=== PATIENT | female | born 1980 | race Two or more races ===

== ENCOUNTER 2016-09-12 18:42 | Emergency (ER) | payer BC, OTHER ==
[2016-09-12 18:46] VITALS: BP 161/71; PULSE 100; TEMP 98.1; BMI 34.3
[2016-09-12] MEDS ORDERED: ONDANSETRON 4 MG/2 ML VIAL IVPB ONE (20:42)
[2016-09-12] MEDS ORDERED: SODIUM CHLORIDE 1,000 ML IV STA (20:42)
--- NOTE | 2016-09-12 20:42 | PDOC ---
History of Present Illness - General History Source: Patient Exam Limitations: No Limitations - History of Present Illness Initial Comments: 09/12/16 21:09 Patient is a 36 year old female with no significant past medical history who presents to the ED with right flank pain. Patient notes that she developed a right sided flank pain for few days that now radiated to the R groin with radiation to the right rib area. Patient notes that earlier this morning she felt a passing pain this morning. She also reports nausea and increased urinary output. PSH: none ALL: none SH: none <Cherise Acevedo - Last Filed: 09/13/16 00:24> <Rashmi Charlton - Last Filed: 09/13/16 00:37> - General Chief Complaint: Pain Stated Complaint: RT SIDE ABD PAIN/BACK PAIN Time Seen by Provider: 09/12/16 20:19 Past History <Cherise Acevedo - Last Filed: 09/13/16 00:24> - Psycho/Social/Smoking Cessation Hx Suicidal Ideation: No Smoking History: Never smoked Information on smoking cessation initiated: No Hx Alcohol Use: No Drug/Substance Use Hx: No Substance Use Type: None <Rashmi Charlton - Last Filed: 09/13/16 00:37> - Past Medical History Allergies/Adverse Reactions: Allergies Allergy/AdvReac Type Severity Reaction Status Date / Time No Known Allergies Allergy Verified 09/12/16 18:46 Home Medications: Ambulatory Orders Sulfamethoxazole/Trimethoprim [Bactrim Ds -] 1 tab PO BID #14 tablet 09/13/16 Review of Systems - Review of Systems Able to Perform ROS?: Yes Comments:: 09/12/16 21:09 CONSTITUTIONAL: Absent: fever, chills, diaphoresis, generalized weakness, malaise, loss of appetite HEENT: Absent: rhinorrhea, nasal congestion, throat pain, throat swelling, difficulty swallowing, mouth swelling, ear pain, eye pain, visual Changes CARDIOVASCULAR: Absent: chest pain, syncope, palpitations, irregular heart rate, lightheadedness , peripheral edema RESPIRATORY: Absent: cough, shortness of breath, dyspnea with exertion, orthopnea, wheezing, stridor, hemoptysis GASTROINTESTINAL: Absent: abdominal pain, abdominal distension, nausea, vomiting, diarrhea, constipation, melena, hematochezia GENITOURINARY: Present: R flank pain, right groin pain Absent: dysuria, frequency, urgency, hesitancy, hematuria, genital pain MUSCULOSKELETAL: Absent: myalgia, arthralgia, joint swelling SKIN: Absent: rash, itching, pallor HEMATOLOGIC/IMMUNOLOGIC: Absent: easy bleeding, easy bruising, lymphadenopathy, frequent infections ENDOCRINE: Absent: unexplained weight gain, unexplained weight loss, heat intolerance, cold intolerance NEUROLOGIC: Absent: headache, focal weakness or paresthesias, dizziness, unsteady gait, seizure, mental status changes, bladder or bowel incontinence PSYCHIATRIC: Absent: anxiety, depression, suicidal or homicidal ideation, hallucinations. <Cherise Acevedo - Last Filed: 09/13/16 00:24> *Physical Exam - Vital Signs Last Vital Signs Temp Pulse Resp BP Pulse Ox 98.1 F 100 H 18 161/71 99 09/12/16 18:43 09/12/16 18:43 09/12/16 18:43 09/12/16 18:43 09/12/16 18:43 - Physical Exam Comments: 09/12/16 21:10 GENERAL: Well developed, well nourished. Awake and alert. No acute distress. HEENT: Normocephalic, atraumatic. PERRLA, EOMI. No conjunctival pallor. Sclera are non- icteric. Moist mucous membranes. Oropharynx is clear. NECK: Supple. Full ROM. No JVD. Carotid pulses 2+ and symmetric, without bruits. No thyromegaly. No lymphadenopathy. CARDIOVASCULAR: Regular rate and rhythm. No murmurs, rubs, or gallops. Distal pulses are 2+ and symmetric. PULMONARY: No evidence of respiratory distress. Lungs clear to auscultation bilaterally. No wheezing, rales or rhonchi. ABDOMINAL: +right groin tenderness to palpation. Soft. Non-distended. No rebound or guarding. No organomegaly. Normoactive bowel sounds. MUSCULOSKELETAL +Right CVA tenderness. Normal range of motion at all joints. No bony deformities or tenderness. EXTREMITIES: No cyanosis. No clubbing. No edema. No calf tenderness. SKIN: Warm and dry. Normal capillary refill. No rashes. No jaundice. NEUROLOGICAL: Alert, awake, appropriate. Cranial nerves 2-12 intact. No deficits to light touch and temperature in face, upper extremities and lower extremities. No motor deficits in the in face, upper extremities and lower extremities. Normoreflexic in the upper and lower extremities. Normal speech. PSYCHIATRIC: Cooperative. Good eye contact. Appropriate mood and affect. <Cherise Acevedo - Last Filed: 09/13/16 00:24> - Vital Signs Last Vital Signs Temp Pulse Resp BP Pulse Ox 98.1 F 100 H 18 161/71 99 09/12/16 18:43 09/12/16 18:43 09/12/16 18:43 09/12/16 18:43 09/12/16 18:43 <Rashmi Charlton - Last Filed: 09/13/16 00:37> ED Treatment Course - LABORATORY CBC & Chemistry Diagram: 09/12/16 20:45 09/12/16 22:30 - ADDITIONAL ORDERS Additional order review: 09/12/16 20:45 RBC 4.80 MCV 86.6 MCHC 33.6 RDW 13.5 MPV 9.0 Neutrophils % 56.8 Lymphocytes % 35.9 Monocytes % 5.7 Eosinophils % 0.9 Basophils % 0.7 - RADIOLOGY Radiology Studies Ordered: 09/13/16 00:24 THIS IS A PRELIMINARY REPORT FROM [facility] EXAM: CT ABDOMEN AND PELVIS WITHOUT CONTRAST 3.2 cm exophytic fibroid near right uterine fundus versus right adnexal mass. Possible trace physiologic free fluid left adnexa. Further evaluation with ultrasound may be useful. No nephrolithiasis, ureterolithiasis or obstructive uropathy. No bladder calculi. Unremarkable pancreas and gallbladder. No bowel obstruction, colitis, diverticulitis or free air. Normal appendix. THIS DOCUMENT HAS BEEN ELECTRONICALLY SIGNED [place] Esposito M.D. - Medications Given in the ED: ED Medications Discontinued Medications Generic Name Dose Route Start Last Admin Trade Name Freq PRN Reason Stop Dose Admin Ondansetron HCl 4 mg 09/12/16 20:42 09/12/16 20:52 Zofran Injection IVPB 09/12/16 20:43 4 mg ONCE ONE Administration <Cherise Acevedo - Last Filed: 09/13/16 00:24> - LABORATORY CBC & Chemistry Diagram: 09/12/16 20:45 09/12/16 22:30 <Rashmi Charlton - Last Filed: 09/13/16 00:37> *DC/Admit/Observation/Transfer - Attestations Scribe Attestion: 09/12/16 21:17 Documentation prepared by FRITZ Hopkins, acting as medical doctor for Rashmi Charlton MD. <Cherise Acevedo - Last Filed: 09/13/16 00:24> <Rashmi Charlton - Last Filed: 09/13/16 00:37> Diagnosis at time of Disposition: Pelvic pain, Flank pain Fibroid Qualifiers: Uterine leiomyoma location: unspecified location Qualified Code(s): D25.9 - Leiomyoma of uterus, unspecified Urinary tract infection Qualifiers: Urinary tract infection type: site unspecified Hematuria presence: without hematuria Qualified Code(s): N39.0 - Urinary tract infection, site not specified - Discharge Dispostion Disposition: HOME Condition at time of disposition: Stable - Prescriptions Prescriptions: Sulfamethoxazole/Trimethoprim [Bactrim Ds -] 1 tab PO BID #14 tablet - Referrals Referrals: Blade Robin MD [Primary Care Provider] - - Patient Instructions Printed Discharge Instructions: DI for Pelvic Pain, DI for Flank Pain, DI for Urinary Tract Infection (UTI) Additional Instructions: please follow up with the core checker for ultrasound and further evaluation
[2016-09-12] MEDS ORDERED: ONDANSETRON 4 MG/2 ML VIAL ONE (20:44)
[2016-09-12 20:59] LABS: BASOPHIL 0.7 % (0-2.0); EOSINOPHIL 0.9 % (0-4.5); MCH 29.1 pg (25.7-33.7); MCHC 33.6 g/dl (32.0-36.0); MEAN CELL VOLUME 86.6 fl (80-96); NEUTROPHILS 56.8 % (42.8-82.8); PLATELET COUNT 253 K/MM3 (134-434); RDW 13.5 % (11.6-15.6); WHITE BLOOD COUNT 7.8 K/mm3 (4.0-10.0)
[2016-09-12 21:10] LABS: URINE APPEARANCE CLEAR; URINE BILIRUBIN NEGATIVE (NEGATIVE); URINE BLOOD NEGATIVE (NEGATIVE); URINE COLOR LTYELLOW; URINE GLUCOSE (UA) NEGATIVE (NEGATIVE); URINE KETONE NEGATIVE (NEGATIVE); URINE NITRITE NEGATIVE (NEGATIVE); URINE PROTEIN NEGATIVE (NEGATIVE); URINE UROBILINOGEN NEGATIVE E.U./dl (0.2-1.0)
[2016-09-12 21:17] LABS: URINE LEUK ESTERASE 3+ (NEGATIVE)
[2016-09-12 21:19] LABS: URINE MUCUS RARE; URINE RBC 4 /hpf (0-3); URINE WBC 15 /hpf (3-5)
[2016-09-12 23:10] LABS: ALBUMIN 3.5 g/dl (3.4-5.0); ANION GAP 10 (8-16); BILIRUBIN,TOTAL 0.4 mg/dL (0.2-1.0); CALCIUM 8.6 mg/dL (8.5-10.1); CO2 24 mmol/L (21-32); CREATININE 0.6 mg/dL (0.55-1.02); GLUCOSE,RANDOM 80 mg/dL (74-106); SGOT/AST 17 U/L (15-37); SGPT/ALT 20 U/L (12-78)
[2016-09-12 23:11] LABS: ALK PHOS 42 U/L (45-117); TOT PROT 6.8 g/dl (6.4-8.2)
[2016-09-13] MEDS ORDERED: KETOROLAC TROMETHAMINE 30 MG/1 ML VIAL IVPUSH ONE (00:23)
[2016-09-13] MEDS ORDERED: SULFAMETHOXAZOLE/TRIMETHOPRIM 800MG/160MG D.S. TABLET PO ONE (00:35)
[2016-09-13] MEDS ORDERED: KETOROLAC TROMETHAMINE 30 MG/1 ML VIAL ONE (00:35)
== END 2016-09-13 01:05 | disposition home or self-care (01) ==
LOC: JER 18:42
PROC: 3E0337Z Introduction of Electrolytic and Water Balance Substance into Peripheral Vein, Percutaneous Approach (ICD-10-PCS; principal; 2016-09-12)
PROC: 3E0333Z Introduction of Anti-inflammatory into Peripheral Vein, Percutaneous Approach (ICD-10-PCS; 2016-09-12)
PROC: 3E033GC Introduction of Other Therapeutic Substance into Peripheral Vein, Percutaneous Approach (ICD-10-PCS; 2016-09-12)
DX: N39.0 Urinary tract infection, site not specified (principal); D25.9 Leiomyoma of uterus, unspecified
CPT/HCPCS: 36415; 74176; 80053; 81003; 81015; 83690; 84703; 85025; 99283-25

== ENCOUNTER 2018-10-26 16:10 | Emergency (ER) | payer OTHER, BC ==
[2018-10-26 16:22] VITALS: BP 119/58; PULSE 92; TEMP 98.1; BMI 35.2
[2018-10-26] MEDS ORDERED: DIPHTH,PERTUSS(ACELL),TET 0.5 ML DISP.SYRIN IM ONE ×2 (16:24→16:37)
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
[2018-10-26] MEDS ORDERED: AMOX TR/POT CLAV 875MG/125MG TABLETS (FP) PO ONE (16:38)
[2018-10-26] MEDS ORDERED: AMOX TR/POT CLAV 875MG/125MG TABLETS (FP) ONE (16:45)
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
== END 2018-10-26 17:03 | disposition home or self-care (01) ==
LOC: JERFT 16:10
PROC: 3E0234Z Introduction of Serum, Toxoid and Vaccine into Muscle, Percutaneous Approach (ICD-10-PCS; principal; 2018-10-26)
DX: S51.852A Open bite of left forearm, initial encounter (principal); W50.3XXA Accidental bite by another person, initial encounter; Y93.89 Activity, other specified; Y92.218 Other school as the place of occurrence of the external cause; Y99.0 Civilian activity done for income or pay
CPT/HCPCS: 90715; 99281-25

== ENCOUNTER 2019-06-24 08:20 | Emergency (ER) | payer BC, OTHER ==
[2019-06-24 08:28] VITALS: BMI 35.2
[2019-06-24] MEDS ORDERED: methylPREDNISolone NA SUCC 125 MG/2 ML VIAL IVPB ONE (09:49)
[2019-06-24] MEDS ORDERED: methylPREDNISolone NA SUCC 125 MG/2 ML VIAL ONE (09:52)
--- NOTE | 2019-06-24 09:56 | PDOC ---
History of Present Illness - General Chief Complaint: Allergic Reaction Stated Complaint: allergic reaction Time Seen by Provider: 06/24/19 08:41 - History of Present Illness Initial Comments: 06/24/19 09:56 39 yo F with no sig pmh who p/w diffuse urticarial, pruitic rash x 1 day . Patient reports development of diffuse facial/forehead rash beginning yesterday (06/23/18), and spreading to back, abdomen, trunk. Patient with no identifiable triggers. Denies h/o contact exposure, new topical emoilents, detergents, soaps , bedding, clothing, sheeting. Denies new change in diet, recent travel, or sick contacts. Denies h/o prior allergic rxn., intubation, epi use. Reports dry non productive cough x 2 days. Reports mild relief of symptoms with Calamine lotion. Complete 1 week course of Valacyoclovr for presumptive shingles . Patient denies drooling, dysphagia, vision change, COLLINS, palpitations, wheezing, orthopena, PND, leg swelling/pain, N/V, F,C, CP, SOB, urinary complaints, hematuria, BPR, abdominal pain, diarrhea, constipation, lightheadedness, weakness, sensory changes. PMHx: as noted above ROS: as noted SHx: Denies Etoh, IVDA, tobacco use Allergies: NKDA Past History - Past Medical History Allergies/Adverse Reactions: Allergies Allergy/AdvReac Type Severity Reaction Status Date / Time No Known Allergies Allergy Verified 06/24/19 08:29 Home Medications: Ambulatory Orders EPINEPHrine (EPI-PEN 0.3MG) [Epipen 0.3MG -] 0.3 mg IM ASDIR #2 pens 06/24/19 Fexofenadine/Pseudoephedrine [Quiana-D 24 Hour Tablet] 1 each PO ONCE #30 tab.er.24h 06/24/19 Prednisone [Prednisone 50 MG TABLETS] 50 mg PO ONCE #2 tablet MDD 1 tab COPD: No - Immunization History Immunization Up to Date: Yes - Psycho Social/Smoking Cessation Hx Smoking History: Never smoked Information on smoking cessation initiated: No Hx Alcohol Use: No Drug/Substance Use Hx: No Substance Use Type: None Review of Systems - Review of Systems Comments:: 06/24/19 10:13 GENERAL/CONSTITUTIONAL: No fever or chills. No weakness. HEAD, EYES, EARS, NOSE AND THROAT: No change in vision. No ear pain or discharge. No sore throat. CARDIOVASCULAR: No chest pain or shortness of breath RESPIRATORY: +cough. No wheezing, or hemoptysis. GASTROINTESTINAL: No nausea, vomiting, diarrhea or constipation. GENITOURINARY: No dysuria, frequency, or change in urination. MUSCULOSKELETAL: No joint or muscle swelling or pain. No neck or back pain. SKIN: No rash NEUROLOGIC: No headache, vertigo, loss of consciousness, or change in strength/ sensation. ENDOCRINE: No increased thirst. No abnormal weight change HEMATOLOGIC/LYMPHATIC: No anemia, easy bleeding, or history of blood clots. ALLERGIC/IMMUNOLOGIC: + hives and skin allergy. *Physical Exam - Vital Signs Last Vital Signs Temp Pulse Resp BP Pulse Ox 98.1 F 102 H 16 168/80 96 06/24/19 08:25 06/24/19 08:25 06/24/19 08:25 06/24/19 08:25 06/24/19 08:25 - Physical Exam 06/24/19 10:13 GENERAL: Awake, alert, and fully oriented, in no acute distress HEAD: No signs of trauma, normocephalic, atraumatic EYES: PERRLA, EOMI, sclera anicteric, conjunctiva clear ENT: Auricles normal inspection, hearing grossly normal, nares patent, oropharynx clear without exudates. Moist mucosa. Neg palatal edema, or mucosal swelling NECK: Normal ROM, supple, no lymphadenopathy, JVD, or masses LUNGS: No distress, speaks full sentences, clear to auscultation bilaterally HEART: Regular rate and rhythm, normal S1 and S2, no murmurs, rubs or gallops, peripheral pulses normal and equal bilaterally. ABDOMEN: Soft, nontender, normoactive bowel sounds. No guarding, no rebound. No masses EXTREMITIES : Normal inspection, Normal range of motion, no edema. No clubbing or cyanosis NEUROLOGICAL: Cranial nerves II through XII grossly intact. Normal speech, normal gait, no focal sensorimotor deficits SKIN: + non tender, urticaria present on face/forehead distribution, arm, trunk , abdomen. + Healed lesions llq abdomen. Warm, Dry, normal turgor, ED Treatment Course - LABORATORY CBC & Chemistry Diagram: 06/24/19 09:50 06/24/19 09:50 Medical Decision Making - Medical Decision Making 06/24/19 10:09 39 yo F with no sig pmh who p/w diffuse urticarial, pruitic rash x 1 day .HR 102 , Vitals otherwise wnl, AF, A&Ox3. Physical exam notable for diffuse urticaria present on face/forehead distribution, arm, trunk, abdomen. + healed LLQ abdominal skin lesions. Patient with absent evidence resp compromise, or anaphylaxis. No evidence of palatal edema, tongue swelling, mucosal involvement. Neg wheezing, stridor, evidence of airway compromise. Tolerating oral secretions. Patient denies drooling, dysphagia, vision change, wheezing,N/V , F,C, CP, SOB, urinary complaints,abdominal pain, diarrhea, lightheadedness, weakness, sensory changes. Low suspcion anaphylaxis. Sx. likely 2/2 viral urticaria vs.medication induced. Will manage, reassess. ED course: Diphenhydramine, Ranitidine Mehtylprednisone 06/24/19 11:28 Laboratory Tests 06/24/19 06/24/19 06/24/19 09:50 09:50 09:50 WBC 6.5 Hgb 13.5 Hct 39.0 Plt Count 264 Sodium 135 L Potassium 5.6 H BUN 21.1 H Creatinine 0.7 Influenza A (Rapid) Negative Influenza B (Rapid) Negative 06/24/19 11:28 Patient rash improved. Stable for d/c with return precautions. 06/24/19 11:38 Sent steroids and EpiPen to pharmacy. Discharge - Discharge Information Problems reviewed: Yes Clinical Impression/Diagnosis: Urticaria Condition: Stable - Admission No - Additional Discharge Information Prescriptions: EPINEPHrine (EPI-PEN 0.3MG) [Epipen 0.3MG -] 0.3 mg IM ASDIR #2 pens Fexofenadine/Pseudoephedrine [Quiana-D 24 Hour Tablet] 1 each PO ONCE #30 tab.er.24h Prednisone [Prednisone 50 MG TABLETS] 50 mg PO ONCE #2 tablet MDD 1 tab - Follow up/Referral Referrals: Blade Robin MD [Primary Care Provider] - - Patient Discharge Instructions Patient Printed Discharge Instructions: DI for Hives Additional Instructions: Please return to the emergency department with any new or worsening symptoms or concerns (such as wheezing, shortness of breath, trouble swallowing). Please follow up with your primary care physician within 72 hours. Take Steroid and Quiana daily. - Post Discharge Activity Work/Back to School Note: Back to Work
[2019-06-24 10:05] LABS: BASO % 0.1 % (0-2.0); EOS % 0.3 % (0-4.5); HEMOGLOBIN 13.5 GM/dL (10.7-15.3); LYMPH % 22.5 % (8-40); MCH 30.3 pg (25.7-33.7); MCHC 34.7 g/dl (32.0-36.0); MEAN CELL VOLUME 87.3 fl (80-96); MEAN PLT VOLUME 8.2 fl (7.5-11.1); MONO % 3.5 % (3.8-10.2); NEUT % 73.6 % (42.8-82.8); PLATELET COUNT 264 K/MM3 (134-434); RBC 4.47 M/mm3 (3.60-5.2); RDW 13.7 % (11.6-15.6); WHITE BLOOD COUNT 6.5 K/mm3 (4.0-10.0)
--- NOTE | 2019-06-24 10:08 | PDOC ---
Attending Attestation - Resident Resident Name: Jorge Ag - ED Attending Attestation I have performed the following: I have examined & evaluated the patient, The case was reviewed & discussed with the resident, I agree w/resident's findings & plan, Exceptions are as noted - HPI HPI: 06/24/19 17:29 39 yo F with no sig pmh who p/w diffuse urticarial, pruitic rash x 1 day . - Physicial Exam PE: 06/24/19 17:29 Vitals: Triage Vital signs reviewed General Appearance: No acute distress, well nourished well developed, Head: Atraumatic, Neck: Supple; no Nucal rigidity, no stridor Chest Wall: Nontender Cardiac: Regular rate and rhythym, no murmurs, no rubs, no gallops, Lungs: Clear to auscultation bilateral, good air movement bilaterally, Abdomen: Soft, non distended, normal bowel sounds, non tender to palpation Extremities: Full range of motion to all extremities, no cyanosis, clubbing, or edema Skin: Diffuse urticarial rash to face trunks and extremities Psych: Normal mood, normal affect - Medical Decision Making 06/24/19 17:06 History and examination most consistent with post viral urticaria given that 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 Will discharge home with allergy follow-up Quiana x1 week 3-day course of steroids given the patient was given one-time steroid dose in the emergency department Findings, the need for follow-up and strict return instructions discussed with patient. 06/24/19 17:30
[2019-06-24 11:06] LABS: ALBUMIN 3.9 g/dl (3.4-5.0); BILIRUBIN,TOTAL 0.7 mg/dL (0.2-1); BLOOD UREA NITROGEN 21.1 mg/dL (7-18); CALCIUM 8.6 mg/dL (8.5-10.1); CREATININE 0.7 mg/dL (0.55-1.3); POTASSIUM 5.6 mmol/L (3.5-5.1); TOT PROT 7.8 g/dl (6.4-8.2)
[2019-06-24 11:44] VITALS: BP 156/78; PULSE 96; TEMP 98.5
== END 2019-06-24 11:52 | disposition home or self-care (01) ==
LOC: JER 08:20
PROC: 3E033GC Introduction of Other Therapeutic Substance into Peripheral Vein, Percutaneous Approach (ICD-10-PCS; principal; 2019-06-24)
PROC: 3E0333Z Introduction of Anti-inflammatory into Peripheral Vein, Percutaneous Approach (ICD-10-PCS; 2019-06-24)
DX: L50.9 Urticaria, unspecified (principal)
CPT/HCPCS: 36415; 80053; 85025; 87804; 99283-25

== ENCOUNTER 2023-05-19 16:05 | Emergency (ER) | payer OTHER, BC ==
[2023-05-19 16:16] VITALS: BP 140/78; PULSE 91; RESP 18; TEMP 97.7; BMI 36.3
== END 2023-05-19 18:02 | disposition home or self-care (01) ==
LOC: JER 16:05 → JERFT 16:05
DX: M54.50 Low back pain, unspecified (principal); V03.10XA Pedestrian on foot injured in collision with car, pick-up truck or van in traffic accident, initial encounter
CPT/HCPCS: 99282-25